=== PATIENT | male | born 1950 | race Caucasian/White ===

== ENCOUNTER 2016-06-18 07:29 | Day surgery (SDC) | payer OTHER ==
[~2016-06-18 07:29] MED LIST: COLACE100 M1 PO; LIDOCAINE 1% TOP; NORCO 5-325 TA1 EACH PO; OXYBUTYNIN CHLOR5 M2 PO; PRILOSEC OTC20 M1 PO
[2016-06-18] MEDS ORDERED: ULTRAM50 M1 PO (18:03)
[2016-06-18] MEDS ORDERED: PERCOCET 5-3251 EACH PO (18:05)
== END 2016-06-18 18:45 ==
LOC: SRG 07:29 → SHSC 07:31 → ORE 09:53 → PACU 13:20 → 5EA 15:00
PROC: 0LQ14ZZ Repair Right Shoulder Tendon, Percutaneous Endoscopic Approach (ICD-10-PCS; principal; 2016-06-18)
DX: S46.011A Strain of muscle(s) and tendon(s) of the rotator cuff of right shoulder, initial encounter (principal); K21.9 Gastro-esophageal reflux disease without esophagitis; Z87.891 Personal history of nicotine dependence; E78.00 Pure hypercholesterolemia, unspecified; Z85.46 Personal history of malignant neoplasm of prostate; Z90.79 Acquired absence of other genital organ(s); Z79.899 Other long term (current) drug therapy; Z98.890 Other specified postprocedural states; W00.0XXA Fall on same level due to ice and snow, initial encounter
CPT/HCPCS: C1713; J0171; J0690; J1170; J3010